=== PATIENT | male | born 1985 | race Caucasian/White ===

== ENCOUNTER 2018-07-29 10:03 | Emergency (ER) | payer OTHER ==
[~2018-07-29] VITALS: Ht 172.7 cm; Wt 68.0 kg
[~2018-07-29 10:03] MED LIST: PREDNISONE 20 M20 MG PO; PRINIVIL10 MG PO
[2018-07-29] MEDS ORDERED: ULTRAM 50MG TAB50 MG PO (11:00)
[2018-07-29 12:04] VITALS: BP 141/90
== END 2018-07-29 11:54 | disposition home or self-care (01) ==
LOC: ER 10:03
DX: S92.512A Displaced fracture of proximal phalanx of left lesser toe(s), initial encounter for closed fracture (principal); I10 Essential (primary) hypertension; J45.909 Unspecified asthma, uncomplicated; W23.0XXA Caught, crushed, jammed, or pinched between moving objects, initial encounter; Y93.89 Activity, other specified; Y92.89 Other specified places as the place of occurrence of the external cause; Y99.8 Other external cause status